=== PATIENT | female | born 1955 | race Caucasian/White ===

== ENCOUNTER → 2016-08-21 | Outpatient (CLI) | payer BC ==
--- NOTE | 2016-08-21 09:02 | REPMRS ---
Patient History The patient states she had a clinical breast exam in 2015. Patient is postmenopausal and is nulliparous. Family history of unknown cancer in father at age 73 and unknown cancer in paternal uncle at age 50 or over. Took hormonal contraceptives for 10 years. Digital Mammo Screening Bilat: August 21, 2016 - Exam #: [id number] Bilateral CC and MLO view(s) were taken. Technologist: Fatou Foley, Technologist Prior study comparison: August 16, 2015, bilateral digital mammo screening bilat performed at [facility]. June 19, 2014, bilateral bilat screen digital mammo, performed at [facility] ([facility]). FINDINGS: The breast tissue is heterogeneously dense. This may lower the sensitivity of mammography. There has been no change in the appearance of the mammogram from the prior studies. There is a moderate amount of residual fibroglandular tissue which is fairly symmetric. There is no interval development of dominant mass, architectural distortion, or clustered microcalcification typical of malignancy. Scattered lymph nodes are seen in the right axilla. Large coarse benign appearing calcifications are present in the right breast. No significant changes when compared with prior studies. ASSESSMENT: BI-RADS/ACR category 2 mammogram. Benign finding(s). Recommendation Routine screening mammogram in 1 year (for women over age 40). This mammogram was interpreted with the aid of an FDA-approved computer-aided dectection system. A. Negative x-ray reports should not delay biopsy if a dominant or clinically suspicious mass is present. B. Four to eight percent of cancers are not identified by mammography. C. Adenosis and dense breast may obscure an underlying neoplasm. Electronically Signed By: Vern Mccullough MD 08/21/16 0902
== END ==
LOC: M RAD 08:09
PROVIDERS: ATTEND Internal Medicine
DX: Z12.31 Encounter for screening mammogram for malignant neoplasm of breast (principal)

== ENCOUNTER → 2017-08-31 | Outpatient (CLI) | payer BC | LOC: M RAD 12:32 | DX: Z12.31 Encounter for screening mammogram for malignant neoplasm of breast (principal); R92.8 Other abnormal and inconclusive findings on diagnostic imaging of breast | CPT/HCPCS: 77067 ==

== ENCOUNTER 2017-11-19 06:48 | Day surgery (SDC) | payer BC ==
[2017-11-19] MEDS ORDERED: PROPOFOL 200 MG/20 ML VIAL As Ordered (06:53)
[2017-11-19] MEDS ORDERED: LIDOCAINE 2% INJ 100 MG/5 ML SDV (FOR ANES.) As Ordered (06:53)
[2017-11-19] MEDS: NS 1,000 ML IV (07:00)
== END 2017-11-19 08:30 | disposition home or self-care (01) ==
LOC: M OPP 06:48
DX: Z12.11 Encounter for screening for malignant neoplasm of colon (principal); D12.0 Benign neoplasm of cecum; K58.9 Irritable bowel syndrome, unspecified; M19.90 Unspecified osteoarthritis, unspecified site; Z79.82 Long term (current) use of aspirin; Z79.899 Other long term (current) drug therapy; Z80.42 Family history of malignant neoplasm of prostate
CPT/HCPCS: 45380

== ENCOUNTER → 2018-09-06 | Outpatient (CLI) | payer BC ==
[~2018-09-06] MED LIST: ASPI81TA85 PO; CALC600T60 PO; MULT1TAB8 PO; OMEG100011 PO; VITA200016 PO; ZYRT10CA PO
--- NOTE | 2018-09-06 09:19 | REPMRS ---
Patient History The patient states she had a clinical breast exam in 03/2018. Patient is postmenopausal and is nulliparous. Family history of pancreatic cancer at age 73 in father, pancreatic cancer at age 50 or over in paternal uncle. Took hormonal contraceptives for 10 years. 3D TOMOSYNTHESIS WAS PERFORMED. Digital Woman Screen Mammo: September 06, 2018 - Exam #: [id number] Bilateral CC and MLO view(s) were taken. Technologist: Gisselle Sanchez, Technologist Prior study comparison: August 31, 2017, bilateral digital mammo screening bilat, performed at [facility]. August 21, 2016, bilateral digital mammo screening bilat, performed at [facility]. FINDINGS: The breast tissue is heterogeneously dense. This may lower the sensitivity of mammography. There has been no change in the appearance of the mammogram from the prior studies. There is a moderate amount of residual fibroglandular tissue which is fairly symmetric. There is no interval development of dominant mass, areas of architectural distortion, or clustered microcalcification typical of malignancy. Assessment: BI-RADS/ACR category 1 mammogram. Negative Mammogram. Recommendation Routine screening mammogram in 1 year (for women over age 40). This mammogram was interpreted with the aid of an FDA-approved computer-aided dectection system. Electronically Signed By: Griffin Hidalgo MD 09/06/18 0918
--- NOTE | 2018-09-11 11:06 | DEXA ---
AP SPINE L1 - L4 1.253 0.5 1.8 LT FEMUR TOTAL 0.881 -1.0 0.0 LT NECK 0.838 -1.4 -0.1 RT FEMUR TOTAL 0.827 -1.4 -0.4 RT NECK 0.822 -1.6 -0.2 TOTAL BODY TOTAL OTHER COMMENTS: Normal bone densitometry of the spine. There is low bone density of the hips. The density of the spine has decreased 3.7% since 05/08/2008. The density of the left hip has decreased 5.7% since 05/08/2008. The density of the right hip has decreased 8.1% since 05/08/2008. The decreased density of the spine does represent a significant change. The decreased density of the left hip does represent a significant change. The decreased density of the right hip does represent a significant change. FOLLOW-UP: Recommendation for the next bone density exam: 2 years. SHWETA
== END ==
LOC: M WHC 07:59
PROVIDERS: ATTEND Internal Medicine
DX: Z12.31 Encounter for screening mammogram for malignant neoplasm of breast (principal); M85.80 Other specified disorders of bone density and structure, unspecified site; Z78.0 Asymptomatic menopausal state; Z92.0 Personal history of contraception

== ENCOUNTER → 2019-12-02 | Outpatient (CLI) | payer BC ==
--- NOTE | 2019-12-02 10:33 | REPMRS ---
Patient History The patient states she had a clinical breast exam in 2019. Family history of pancreatic cancer at age 73 in father, pancreatic cancer at age 50 or over in paternal uncle. Took hormonal contraceptives for 10 years. 3D TOMOSYNTHESIS WAS PERFORMED. The Terrance Griffin lifetime risk for breast cancer is 9.2%. VOLPARA DENSITY B. Digital Woman Screen Mammo: December 02, 2019 - Exam #: [id number] Bilateral CC and MLO view(s) were taken. Technologist: Sabrina Soto, Technologist Prior study comparison: September 06, 2018, bilateral digital woman screen mammo performed at [facility]. August 31, 2017, bilateral digital mammo screening bilat, performed at [facility]. FINDINGS: The breast tissue is heterogeneously dense. This may lower the sensitivity of mammography. There has been no change in the appearance of the mammogram from the prior studies. There is a moderate amount of residual fibroglandular tissue which is fairly symmetric. There is no interval development of dominant mass, areas of architectural distortion, or clustered microcalcification typical of malignancy. Assessment: BI-RADS/ACR category 1 mammogram. Negative Mammogram. Recommendation Routine screening mammogram in 1 year (for women over age 40). This mammogram was interpreted with the aid of an FDA-approved computer-aided dectection system. Electronically Signed By: Griffin Hidalgo MD 12/02/19 1036
== END ==
LOC: M WHC 09:20
PROVIDERS: ATTEND Internal Medicine
DX: Z12.31 Encounter for screening mammogram for malignant neoplasm of breast (principal); Z80.0 Family history of malignant neoplasm of digestive organs

== ENCOUNTER → 2020-08-27 | Outpatient (CLI) | payer BC ==
[~2020-08-27] MED LIST changes: -ASPI81TA85 PO; +ASPI81TA86 PO
--- NOTE | 2020-08-27 15:29 | REPMRS ---
Patient History Family history of pancreatic cancer at age 73 in father, pancreatic cancer at age 50 or over in paternal uncle. Took hormonal contraceptives for 10 years. Diagnostic Bilateral Mammo: August 27, 2020 - Exam #: [id number] Bilateral CC and MLO view(s) were taken. Technologist: RT Jackson Prior study comparison: December 02, 2019, bilateral digital woman screen mammo performed at [facility]. September 06, 2018, bilateral digital woman screen mammo performed at [facility]. August 31, 2017, bilateral digital mammo screening bilat, performed at [facility]. August 16, 2015, bilateral digital mammo screening bilat, performed at [facility]. FINDINGS: There are scattered fibroglandular densities. The Volpara volumetric breast density category is: B. There is a moderate amount of residual fibroglandular tissue which is fairly symmetric. There is no interval development of dominant mass, architectural distortion, or grouped microcalcification typical of malignancy. There has been no change in the appearance of the mammogram from the prior studies. 3-D tomosynthesis shows no additional findings. Assessment: BI-RADS/ACR category 1 mammogram. Negative Mammogram. Recommendation Routine screening mammogram of both breasts in 1 year (for women over age 40). This patient's [facility] Lifetime Breast Cancer RIsk is estimated at 8.8 %. This mammogram was interpreted with the aid of an FDA-approved computer-aided dectection system. Electronically Signed By: Nelson Dempsey MD 08/27/20 8882
== END ==
LOC: M WHC 14:22
PROVIDERS: ATTEND Internal Medicine
DX: N64.4 Mastodynia (principal)
CPT/HCPCS: 77066; G0279

== ENCOUNTER → 2021-01-13 | Outpatient (CLI) | payer BC ==
--- NOTE | 2021-01-13 10:55 | DEXAMM ---
INDICATION: M85.80 [facility] DISRD OF BONE DENSITY AND STRUCTURE. COMPARISON: Comparison studies are from September 06, 2018 and May 08, 2008. TECHNIQUE: Bone density was measured using dual-energy x-ray absorptionmetry (DEXA). FINDINGS: AP SPINE L1-L4 BMD 1.304 g/cm2 Young Adult T-Score 0.9 Age Matched Z-Score 2.4. LT FEMUR, TOTAL BMD 0.893 g/cm2 Young Adult T-Score -0.9 Age Matched Z-Score 0.2. LT NECK BMD 0.835 g/cm2 Young Adult T-Score -1.5 Age Matched Z-Score 0.0. RT FEMUR, TOTAL BMD 0.823 g/cm2 Young Adult T-Score -1.5 Age Matched Z-Score -0.3. RT NECK BMD 0.808 g/cm2 Young Adult T-Score -1.7 Age Matched Z-Score -0.2. IMPRESSION: There is normal bone density of the spine. There is low bone density of the left hip. There is low bone density of the right hip. The density of the spine has increased 0.2% since the initial exam on May 08, 2008. The density of the spine increased 4.1% since most recent exam on September 06, 2018. The density of the left hip has decreased 4.4% since initial exam on May 08, 2008. The density of the left hip has increased 1.4% since most recent exam on September 06, 2018. The density of the right hip has decreased 8.6% since the initial exam on May 08, 2008. The density of the right hip has decreased 0.5% since the most recent exam on September 06, 2018. FOLLOW-UP: Recommendation for the next bone density exam: 2 years. <Electronically signed by Nelson Dempsey > 01/13/21 1499
== END ==
LOC: M WHC 09:51
PROVIDERS: ATTEND Internal Medicine
DX: M85.80 Other specified disorders of bone density and structure, unspecified site (principal)

== ENCOUNTER → 2022-04-10 | Outpatient (REF) | payer BC | LOC: M LAB REF 16:19 | PROVIDERS: ATTEND Internal Medicine | DX: R10.9 Unspecified abdominal pain (principal) ==

== ENCOUNTER → 2022-09-15 | Outpatient (CLI) | payer BC | LOC: M PLAIMG 11:44 | PROVIDERS: ATTEND Internal Medicine | DX: I49.3 Ventricular premature depolarization (principal) ==

== ENCOUNTER → 2022-10-04 | Outpatient (REF) | payer BC | LOC: M LAB REF 13:01 | PROVIDERS: ATTEND Internal Medicine | DX: E03.9 Hypothyroidism, unspecified (principal) ==

== ENCOUNTER → 2022-10-31 | Outpatient (CLI) | payer BC | LOC: M WHC 13:32 | PROVIDERS: ATTEND Internal Medicine | DX: Z12.31 Encounter for screening mammogram for malignant neoplasm of breast (principal) ==

== ENCOUNTER → 2023-11-02 | Outpatient (CLI) | payer BC ==
[~2023-11-02] MED LIST changes: +ALL10TAB PO; +ASPI81TA26 PO; +MELO7.5T35 PO; +OMEP-173 PO; +VITA100093 PO
== END ==
LOC: M WHC 08:36
PROVIDERS: ATTEND Internal Medicine
DX: Z12.31 Encounter for screening mammogram for malignant neoplasm of breast (principal); M85.89 Other specified disorders of bone density and structure, multiple sites

== ENCOUNTER → 2024-02-29 | Outpatient (REF) | payer BC ==
[2024-03-05 20:47] LABS: LYME TOTAL ANTIBODY CIA <= 0.90 Index (<=0.90)
[2024-03-06 15:41] LABS: BORRELIA SPECIES DNA NOT DETECTED (NOT DETECT)
[2024-03-06 16:22] LABS: Babesia microti NOT DETECTED (NOT DETECT); Ehrlichia chaffeensis NOT DETECTED (NOT DETECT)
[2024-03-06 16:27] LABS: Anaplasma phagocytophilum NOT DETECTED (NOT DETECT)
== END ==
LOC: M LAB REF 12:59
PROVIDERS: ATTEND Internal Medicine
DX: Z11.59 Encounter for screening for other viral diseases (principal)

== ENCOUNTER 2024-07-20 06:23 | Emergency (ER) | payer BC, MEDICARE ==
[~2024-07-20] VITALS: Ht 167.6 cm; Wt 68.0 kg
[2024-07-20 08:37] LABS: BASO % 0.2 % (0.0-1.0); HEMATOCRIT 51.8 % (36.0-47.0); HEMOGLOBIN 17.3 g/dl (12.0-15.5); LYMPH # 0.6 10^3/uL (1.5-5.0); LYMPH % 3.4 % (24.0-44.0); MEAN CORPUSCULAR HEMOGLOBIN 29.6 pg (27.0-33.0); MEAN CORPUSCULAR HGB CONC 33.4 g/dl (32.0-36.5); MEAN CORPUSCULAR VOLUME 88.7 fl (80.0-96.0); MONO # 0.6 10^3/uL (0.0-0.8); MONO % 3.5 % (2.0-8.0); NEUTROPHILS # 15.7 10^3/uL (1.5-8.5); NEUTROPHILS % 92.5 % (36.0-66.0); PLATELET COUNT, AUTOMATED 237 10^3/uL (150-450); RED BLOOD COUNT 5.84 10^6/uL (4.00-5.40); WHITE BLOOD COUNT 16.9 10^3/uL (4.0-10.0)
[2024-07-20 08:38] LABS: KETONE, URINE AUTO RFX 1+ mg/dL (NEGATIVE); LEUKOCYTE ESTERASE UR AUTO RFX TRACE (NEGATIVE); MUCUS, URINE RFX SMALL (NEGATIVE); NITRITE, URINE AUTO RFX NEGATIVE (NEGATIVE); RBC, URINE AUTO RFX 15 /HPF (0-3); SQUAM EPITHELIAL CELL UR AURFX 0 /HPF (0-6); WBC, URINE AUTO RFX 14 /HPF (0-3)
[2024-07-20] MEDS: NS (Normal Saline) 0.9% 1,000 ML IV SCH (08:54)
[2024-07-20] MEDS: ONDANSETRON 4MG 2ML VIAL IV ONE (08:54)
[2024-07-20 08:59] LABS: LIPASE 27 U/L (12-53)
[2024-07-20 09:08] LABS: ALBUMIN 4.2 G/DL (3.2-5.2); ALKALINE PHOSPHATASE 74 U/L (35-104); ALT/SGPT 27 U/L (7.0-40); AST/SGOT 22 U/L (<34); BILIRUBIN,DIRECT 0.2 MG/DL (<0.4); BILIRUBIN,TOTAL 0.9 MG/DL (0.3-1.2); BLOOD UREA NITROGEN 24 MG/DL (9-23); CALCIUM LEVEL 10.3 MG/DL (8.3-10.6); CARBON DIOXIDE LEVEL 28 MMOL/L (20-31); CHLORIDE LEVEL 103 MMOL/L (98-107); GLOMERULAR FILTRATION RATE > 60.0 (>45); GLUCOSE, FASTING 208 MG/DL (74-106); POTASSIUM SERUM 4.3 MMOL/L (3.5-5.1); SODIUM LEVEL 142 MMOL/L (136-145); TOTAL PROTEIN 7.6 G/DL (5.7-8.2)
[2024-07-20] MEDS ORDERED: ISOVUE-370 76% 100ML VIAL As Ordered ONE (09:38)
[2024-07-20] MEDS: FLEET ENEMA PR STA (11:41)
[2024-07-20] MEDS: MAGNESIUM CITRATE 300ML BTL PO ONE (14:05)
[2024-07-20] MEDS ORDERED: COLA100C5 PO (14:43)
[2024-07-20 15:10] VITALS: BP 137/75; TEMP 98.7; O2SAT 97
== END 2024-07-20 15:14 | disposition home or self-care (01) ==
LOC: M ED 06:23
DX: K59.00 Constipation, unspecified (principal); K21.9 Gastro-esophageal reflux disease without esophagitis; Z79.1 Long term (current) use of non-steroidal anti-inflammatories (NSAID); Z79.810 Long term (current) use of selective estrogen receptor modulators (SERMs); Z79.899 Other long term (current) drug therapy
CPT/HCPCS: 74177; 80048; 80076; 81001; 83690; 85025; 87086; 93005; 93041; 96374; 99284; J2405; Q9967